=== PATIENT | female | born 1975 | race Hispanic/Latino ===

== ENCOUNTER 2022-08-20 10:19 | Emergency (ER) | payer BC ==
[~2022-08-20] VITALS: Ht 149.9 cm; Wt 70.3 kg
[2022-08-20 11:07] LABS: BASOPHILS % (AUTO) 0.3 % (0.0-5.0); EOSINOPHILS % (AUTO) 0.1 % (0.0-8.0); HEMATOCRIT 40.4 % (36-48); LYMPHOCYTES % (AUTO) 12.5 % (21.0-51.0); MEAN CORPUSCULAR HEMOGLOBIN 22.6 pg (27.0-33.0); MEAN CORPUSCULAR HGB CONC 31.7 g/dL (32.0-36.0); MEAN CORPUSCULAR VOLUME 71.4 fL (79-99); MONOCYTES % (AUTO) 7.9 % (3.0-13.0); NEUTROPHILS % (AUTO) 78.7 % (40.0-77.0); PLATELET COUNT (AUTO) 240 K/uL (130-400); RED BLOOD CELL COUNT(AUTO) 5.66 MIL/uL (4.00-5.50); RED CELL DISTRIBUTION WIDTH 13.2 % (11.0-15.5)
[2022-08-20 11:22] LABS: ALBUMIN 3.3 g/dL (3.5-5.0); TOTAL PROTEIN, SERUM 8.3 g/dL (6.0-8.3)
[2022-08-20 11:23] LABS: POTASSIUM 2.6 mmol/L (3.5-5.1)
[2022-08-20 11:28] LABS: APPEARANCE,URINE CLOUDY (CLEAR); BILIRUBIN,URINE NEGATIVE (NEGATIVE); COLOR,URINE YELLOW (YELLOW); GLUCOSE, URINE (UA) NEGATIVE (NEGATIVE); KETONES,URINE 5 mg/dL (NEGATIVE); LEUKOCYTE ESTERASE ,URINE 500 Leu/uL (NEGATIVE); NITRATE,URINE NEGATIVE (NEGATIVE); OCCULT BLOOD,URINE MODERATE (NEGATIVE); PH,URINE 5.5 (5.0-8.0); PROTEIN,URINE 30 mg/dL (NEGATIVE); UROBILINOGEN,URINE 0.2 mg/dL (0.2-1.0)
[2022-08-20 11:46] LABS: BACTERIA,URINE FEW /HPF (None Seen); MUCUS,URINE RARE LPF (None Seen); OTHER CASTS, URINE 1 /LPF (None Seen); RBC,URINE TNTC /HPF (0-1); SQUAMOUS EPITHELIAL CELL,UR MOD /HPF (0-2); WBC,URINE TNTC /HPF (0-1)
[2022-08-20 11:50] LABS: HCG,QUALITATIVE URINE NEGATIVE (NEGATIVE)
[2022-08-20] MEDS ORDERED: LACTATED RINGERS 1000ML 1,000 ML IV ONE (12:00)
[2022-08-20] MEDS ORDERED: CEFTRIAXONE 1G VIAL IVP ONE (12:00)
[2022-08-20] MEDS ORDERED: KCL 20 MEQ ERTAB PO ONE (12:00)
[2022-08-20] MEDS ORDERED: ACETAMINOPHEN 500 MG TABLET PO ONE (12:00)
[2022-08-20] MEDS ORDERED: ACET-2079 PO (13:28)
[2022-08-20] MEDS ORDERED: CEFU500T67 PO (13:28)
[2022-08-20] MEDS ORDERED: IBUP-2070 PO (13:28)
[2022-08-20] MEDS ORDERED: TAMSULOSIN HCL 0.4 MG CAP.ER.24H PO SCH (13:30)
[2022-08-20 13:38] VITALS: BP 131/87
== END 2022-08-20 13:54 | disposition home or self-care (01) ==
LOC: EDH 10:19
DX: N20.0 Calculus of kidney (principal); N39.0 Urinary tract infection, site not specified; I10 Essential (primary) hypertension
CPT/HCPCS: 99284; 74176; 96374; 96361; 80053; 85025; 87040 ×2; 87088; 87804 ×2; 83605; 81001; 81025; 36415; J7120; J0696